=== PATIENT | female | born 1990 | race Caucasian/White ===

== ENCOUNTER → 2017-03-31 | Outpatient (CLI) | payer OTHER ==
--- NOTE | 2017-03-31 12:28 | RADIOLOGY REPORT (SQ) ---
EXAM DESCRIPTION: DUPLEX ART/BREANNE FLOW COMPLETE COMPLETED DATE/TIME: 03/31/2017 10:30 am REASON FOR STUDY: HTN COMPARISON: None. TECHNIQUE: Realtime and static grayscale images acquired. Selected color Doppler, velocities and spe ctral images recorded. LIMITATIONS: Limited visualization of the renal arteries off the abdominal aorta. Renal artery [facility] measurements were obtained at the renal [facility] FINDINGS: RIGHT KIDNEY: RENAL ARTERY VELOCITIES: 63 cm/sec. Segmental artery velocity 47 cm/sec. RENAL VEIN: Color doppler flow present, patent. VELOCITY RATIO: 1.0. Normal waveforms. KIDNEY: Normal size, 11.7 cm in length. Normal echogenicity. No significant pathology. LEFT KIDNEY: RENAL ARTERY VELOCITIES: 79 cm/sec. Segmental artery velocity 67 cm/sec. RENAL VEIN: Color doppler flow present, patent. VELOCITY RATIO: 1.3. Normal waveforms. KIDNEY: Normal size, 12 cm in length. Normal echogenicity. No significant pathology. BLADDER: Normal. Bilateral ureteral jets are identified. OTHER: Incidental finding of fatty infiltration of the liver IMPRESSION: NO DOPPLER EVIDENCE OF HEMODYNAMICALLY SIGNIFICANT RENAL ARTERY STENOSIS. COMMENT: NORMAL RENAL ARTERY/AORTA VELOCITY RATIO IS LESS THAN OR EQUAL TO 3.5. TECHNICAL DOCUMENTATION: JOB ID: [id number] [employer]- All Rights Reserved
== END ==
LOC: RAD 09:12
PROVIDERS: ATTEND Physician Assistant Medical
DX: I70.1 Atherosclerosis of renal artery (principal)
CPT/HCPCS: 93975